=== PATIENT | male | born 2000 | race Caucasian/White ===

== ENCOUNTER 2025-04-08 23:42 | Emergency (ER) | payer BC ==
[~2025-04-08] VITALS: Ht 167.6 cm; Wt 118.3 kg
[2025-04-08 23:46] VITALS: BP 172/109; TEMP 36.7; O2SAT 99
[2025-04-08 23:50] VITALS: PULSE 110; RESP 20; O2SAT 100
[2025-04-09] MEDS: KETOROLAC 15MG/ML VIAL IM ONE (01:10)
[2025-04-09] MEDS ORDERED: AMOX1TAB16 MT (01:22)
[2025-04-09 01:41] VITALS: TEMP 98
[2025-04-09] MEDS: ACETAMINOPHEN 500MG TABLET PO ONE (01:41)
== END 2025-04-09 02:05 | disposition home or self-care (01) ==
LOC: ER 23:42
DX: K04.7 Periapical abscess without sinus (principal); Z79.899 Other long term (current) drug therapy
CPT/HCPCS: 99283; J1885